=== PATIENT | female | born 1955 | race Caucasian/White ===

== ENCOUNTER 2020-04-19 12:22 | Day surgery (SDC) | payer OTHER ==
[~2020-04-19] VITALS: Ht 165.1 cm; Wt 74.8 kg
[~2020-04-19 12:22] MED LIST: ACYCLOVIR 400400 MG PO; AMBIEN 10 MG TA10 MG PO; CLONAZEPAM 0.50.5 M1 PO; FLONASE 0.05%50 MCG NARES; FLUOXETINE HCL40 MG PO; HUMIRA40 MG/0.4 SUBQ; IBUPROFEN 800800 M1 PO; MELATONIN5 MG SUBLING; MULTI VITAMIN1 EACH PO; NEURONTIN600 MG PO; OXYCODONE HCL E10 MG PO; OXYCONTIN20 M1 PO; PENTASA500 MG PO; PRAVASTATIN SOD20 MG PO; PROZAC40 MG PO
[2020-04-19 13:45] VITALS: BP 106/69
== END 2020-04-19 16:45 | disposition home or self-care (01) ==
LOC: TBA 12:22 → OR 12:22 → TBA 12:23 → OR 16:45
DX: G89.4 Chronic pain syndrome (principal); M54.5 Low back pain; K50.90 Crohn's disease, unspecified, without complications; E78.5 Hyperlipidemia, unspecified; K21.9 Gastro-esophageal reflux disease without esophagitis; M19.90 Unspecified osteoarthritis, unspecified site; Z98.890 Other specified postprocedural states; Z79.899 Other long term (current) drug therapy; Z11.59 Encounter for screening for other viral diseases; Z90.49 Acquired absence of other specified parts of digestive tract; Z85.41 Personal history of malignant neoplasm of cervix uteri; Z87.442 Personal history of urinary calculi; Z91.040 Latex allergy status; Z88.8 Allergy status to other drugs, medicaments and biological substances
CPT/HCPCS: 50010; 50101; 50386; 50417; 56524; 56526; 56528; 57271; 57272; 62110; 62900; 70005